=== PATIENT | male | born 1975 | race Hispanic/Latino ===

== ENCOUNTER 2019-08-17 22:11 | Emergency (ER) | payer SELFPAY ==
[2019-08-17] MEDS ORDERED: Amoxicillin/Potassium Clav 875 MG TAB ONE (22:30)
[2019-08-17] MEDS ORDERED: Dexamethasone 4 MG TAB ONE (22:30)
== END 2019-08-17 22:47 | disposition home or self-care (01) ==
LOC: MADERS 22:11
DX: J01.90 Acute sinusitis, unspecified (principal); B96.89 Other specified bacterial agents as the cause of diseases classified elsewhere; K12.2 Cellulitis and abscess of mouth; I10 Essential (primary) hypertension
CPT/HCPCS: 93005; J7620; J8540

== ENCOUNTER 2021-08-25 16:59 | Emergency (ER) | payer SELFPAY ==
[2021-08-25] MEDS ORDERED: Pseudoephedrine HCl 30 MG TAB ONE ×2 (20:24→20:29)
[2021-08-25] MEDS ORDERED: predniSONE 20 MG TAB ONE (20:29)
== END 2021-08-25 20:26 | disposition home or self-care (01) ==
LOC: MADERS 16:59
DX: J00 Acute nasopharyngitis [common cold] (principal); I10 Essential (primary) hypertension
CPT/HCPCS: 99283; J7512